=== PATIENT | male | born 1965 | race Caucasian/White ===

== ENCOUNTER 2020-10-05 10:01 | Emergency (ER) | payer MEDICAID ==
[~2020-10-05] VITALS: Ht 180.3 cm; Wt 95.0 kg
[2020-10-05 10:05] VITALS: BP 148/84
== END 2020-10-05 10:52 | disposition home or self-care (01) ==
LOC: ER 10:01
DX: R11.10 Vomiting, unspecified (principal); R19.7 Diarrhea, unspecified; M54.30 Sciatica, unspecified side
CPT/HCPCS: 99283